=== PATIENT | female | born 1985 | race Two or more races ===

== ENCOUNTER 2021-01-04 10:37 | Outpatient (REF) | payer OTHER, SELFPAY ==
[2021-01-04 15:14] LABS: MANUAL DIFF FLAG NO
[2021-01-04 15:50] LABS: Basophils Percent Auto 0.4 % (0-2); Eosinophils Absolute Auto 0.4 X10*3/uL (0.0-0.4); Eosinophils Percent Auto 4.7 % (0-4); Hematocrit 43.4 % (37-47); Imm Gran Abs Auto 0.02 X10*3/uL (0.00-0.03); Imm Gran Pct Auto 0.3 % (0.0-0.4); Lymphocytes Percent Auto 26.1 % (20-40); Mean Corpuscular HGB Conc 34.6 g/dl (31.0-35.0); Mean Corpuscular Volume 95.6 fL (80-98); Mean Platelet Volume 10.4 fL (9.4-12.3); Monocytes Absolute Auto 0.6 X10*3/uL (0.1-1.2); Monocytes Percent Auto 8.3 % (2-11); Neutrophils Absolute Auto 4.5 X10*3/uL (2.0-8.3); Neutrophils Percent Auto 60.2 % (45-73); Platelet Count 265 X10*3/uL (160-400); Red Blood Count 4.54 X10*6/uL (4.20-5.50); Red Cell Distribution Width 11.5 % (11.0-16.0); White Blood Count 7.5 X10*3/uL (4.8-10.8)
[2021-01-04 16:00] LABS: Alanine Aminotransferase 36 U/L (0-31); Albumin Level 4.5 g/dL (3.5-5.0); Alkaline Phosphatase 58 U/L (39-117); Anion Gap 15 (12-20); Aspartate Amino Transferase 28 U/L (5-31); Bilirubin Total 0.6 mg/dL (0.0-1.0); Blood Urea Nitrogen 15 mg/dL (9-16); Calcium 9.2 mg/dL (8.4-10.2); Carbon Dioxide 23 mmol/L (22-29); Chloride 106 mmol/L (96-108); Cholesterol 179 mg/dL; Estimated Glomerular Filt Rate > 60; Glucose Fasting 71 mg/dL (60-99); HDL Cholesterol 72 mg/dL; Iron 175 mcg/dL (30-160); LDL Cholesterol Calculated 94 mg/dl; Percent Iron Saturation 48 % (15-50); Potassium 4.8 mmol/L (3.3-5.1); Sodium 139 mmol/L (135-145); Total Iron Binding Capacity 368 mcg/dL (228-428); Total Protein 7.1 g/dL (6.5-8.0); Triglycerides 67 mg/dL; Unsaturated Iron Binding 193 ug/dL
[2021-01-04 16:21] LABS: Ferritin 111 ng/mL (10-122); TSH reflex Free T4 0.86 uIU/mL (0.32-4.0)
[2021-01-06 09:16] LABS: Vitamin B12 320 pg/mL (200-900)
== END 2021-01-04 10:38 | disposition home or self-care (01) ==
LOC: HO.HMGCLDS 10:37
PROVIDERS: PCP Nurse Practitioner Family; Visit Provider Nurse Practitioner Family
DX: Z00.00 Encounter for general adult medical examination without abnormal findings (principal); R53.83 Other fatigue
CPT/HCPCS: 36415; 80053; 80061; 82607; 82728; 83540; 84443; 85025

== ENCOUNTER 2021-10-08 13:53 | Outpatient (REF) | payer OTHER, SELFPAY ==
--- NOTE | ~2021-10-08 | XR_ITS ---
EXAMINATION: XR SACRUM AND COCCYX CLINICAL INFORMATION: Sacrococcygeal disorders COMPARISON: None TECHNIQUE: 2 views of the sacrum/coccyx. FINDINGS: No fracture or subluxation. The sacroiliac joints are symmetric. The sacrum appears intact. The coccyx appears well aligned. The visualized lumbar spine appears appropriately aligned. The hips are well aligned. Normal bowel gas pattern. XR/XR sacrum coccyx min 2V IMPRESSION: No fracture or malalignment seen. Appropriate appearance of the sacroiliac joints.
== END 2021-10-08 13:54 | disposition home or self-care (01) ==
LOC: HO.HMGCX 13:53
PROVIDERS: PCP Nurse Practitioner Family; Visit Provider Nurse Practitioner Family
DX: M53.3 Sacrococcygeal disorders, not elsewhere classified (principal)
CPT/HCPCS: 72220

== ENCOUNTER 2021-12-03 13:00 | Outpatient (REF) | payer OTHER, SELFPAY ==
[2021-12-03 13:27] LABS: Binax Internal Control QC Valid; Binax Now Covid-19 Ag Negative (Negative)
== END 2021-12-03 13:01 | disposition home or self-care (01) ==
LOC: HO.HMGCLDS 13:00
PROVIDERS: PCP Nurse Practitioner Family; Visit Provider Internal Medicine
DX: J06.9 Acute upper respiratory infection, unspecified (principal); Z20.822 Contact with and (suspected) exposure to COVID-19
CPT/HCPCS: 87811; C9803

== ENCOUNTER 2023-07-15 11:55 | Outpatient (AMB) | payer OTHER, SELFPAY ==
[2023-07-15 12:26] VITALS: BP 130/78; PULSE 78; TEMP 36.7; O2SAT 98
--- NOTE | 2023-07-15 12:26 | AM.OFFWIN_ITS ---
Intake Vital Signs 07/15/23 12:26 Height 5 ft 5 in BP 130/78 Blood Pressure Location Rt brachial Position Sitting Pulse 78 Pulse Source Pulse Oximeter Temp 98.0 F Temp Source Temporal Artery Scan Pulse Oximetry (%) 98 Intake Visit Reasons: EP asthma cough body pain Intake Note: pt is here for c.o cough, body pain, asthma Patient Tobacco Use Status: Current everyday Tobacco user Allergies No Known Allergies Allergy (Verified 07/15/23 12:27) Do you need a note to return to daycare/school/sports/work: Yes HPI HPI Comments History of Present Illness Details 38 Y/O Female patient [facility] with c/o cough, SOB, wheezing and body aches. Reports that symptoms started Approx 4 days ago now. Reports that symptoms worse at night time. Unable to sleep due to coughing and SOB. Hx of Asthma, and has been using her rescue inhaler more frequently. COVID Negative at home. No recent sick contacts. Denies fevers or chills. Denies Nausea or vomiting. Reports some mild chest pains with coughing. Has not taken any OTC medications. PFSH Surgical History H/O knee surgery Family History Father Asthma Mother Hypertension Diabetes Maternal Grandmother Cancer Social History Alcohol intake: current Alcohol intake frequency: a few times a week Patient Tobacco Use Status: Current everyday Tobacco user Tobacco use type: Cigarette Cigarette Packs Per Day: 1 Cigarettes Per Day: 5 Years Smoked: 18 years old e-Cigarette/Vaping Use: Never Used service: No Cognitive needs: No Hearing needs: No Vision needs: No Review of Systems Const Reports body aches, Reports chills and Reports fatigue Card Reports chest pain (with coughing), Reports dyspnea and Reports dyspnea on exertion Resp Reports chest congestion, Reports cough, Reports pain with cough, Reports dyspnea, Reports dyspnea on exertion and Reports wheezing GI Denies abdominal pain, Denies nausea and Denies vomiting Endo Reports fatigue Aller/Immun Reports wheezing Physical Exam Vital Signs: Last Vital Signs Temp 98.0 F 07/15/23 12:26 Pulse 78 07/15/23 12:26 BP 130/78 07/15/23 12:26 Pulse Ox 98 07/15/23 12:26 Const General: comfortable and no acute distress HEENT Head: Yes normocephalic Ears: external ears normal and TM's normal bilaterally Face and sinus: Yes sinuses nontender Mouth: moist mucous membranes Throat: Yes posterior oropharynx normal Resp Effort & Inspection: normal respiratory effort and Actively coughing Auscultation: no crackles, no rales and wheezes right upper (chest) Cardio Rate: regular rate Rhythm: regular rhythm Assessment & Plan Assessment & Plan (1) Cough in adult: Code(s): R05.9 - Cough, unspecified Plan: Avoid triggers ?? These are things that make your symptoms worse. Common triggers include smoke, air pollution, dust, mold, pollen, strong chemicals or smells, and very cold or dry air. For some people, being around certain animals can trigger symptoms. Exercise and stress can also be triggers. Lower your risk of getting sick?? Some infections can make asthma symptoms worse. These include the common cold, the flu, and coronavirus disease 2019. It's important to get the COVID-19 vaccine. This will lower the risk of severe illness if you do get COVID-19. You should also get a flu shot every year. Plus, a vaccine to help prevent pneumonia. Take your medications as ordered. Rest, hydrate. Report any severe chest pains, SOB and Wheezing. (2) Asthma with acute exacerbation: Code(s): J45.901 - Unspecified asthma with (acute) exacerbation Qualifiers: Asthma severity: moderate Asthma persistence: persistent Qualified Code(s): J45.41 - Moderate persistent asthma with (acute) exacerbation Plan: Avoid triggers ?? These are things that make your symptoms worse. Common triggers include smoke, air pollution, dust, mold, pollen, strong chemicals or smells, and very cold or dry air. For some people, being around certain animals can trigger symptoms. Exercise and stress can also be triggers. Lower your risk of getting sick?? Some infections can make asthma symptoms worse. These include the common cold, the flu, and coronavirus disease 2019. It's important to get the COVID-19 vaccine. This will lower the risk of severe illness if you do get COVID-19. You should also get a flu shot every year. Plus, a vaccine to help prevent pneumonia. Take your medications as ordered. Rest, hydrate. Report any severe chest pains, SOB and Wheezing. Plan Avoid triggers ?? These are things that make your symptoms worse. Common triggers include smoke, air pollution, dust, mold, pollen, strong chemicals or smells, and very cold or dry air. For some people, being around certain animals can trigger symptoms. Exercise and stress can also be triggers. Lower your risk of getting sick?? Some infections can make asthma symptoms worse. These include the common cold, the flu, and coronavirus disease 2019. It's important to get the COVID-19 vaccine. This will lower the risk of severe illness if you do get COVID-19. You should also get a flu shot every year. Plus, a vaccine to help prevent pneumonia. Take your medications as ordered. Rest, hydrate. Report any severe chest pains, SOB and Wheezing. Orders: Orders XR chest 2V Today R05.9 - Cough, unspecified Medications: New 2 azithromycin 500 mg PO DAILY 5 days 5 tabs 0RF prednisone 50 mg PO DAILY 5 days 5 tabs 0RF J45.41 - Moderate persistent asthma with (acute) exacerbation montelukast (Singulair) 10 mg PO BEDTIME 30 tabs 0RF J45.41 - Moderate persistent asthma with (acute) exacerbation, R05.9 - Cough, unspecified Coding Level of Care Code Est Pt Level 3 (78582) Diagnoses Cough in adult R05.9 Moderate persistent asthma with acute exacerbation J45.41 Asthma severity: moderate Asthma persistence: persistent Time Spent (min) 15
== END 2023-07-15 13:33 | disposition home or self-care (01) ==
PROVIDERS: PCP Nurse Practitioner Family; Visit Provider Nurse Practitioner Family
DX: R05.9 Cough, unspecified (principal); J45.41 Moderate persistent asthma with (acute) exacerbation; F17.210 Nicotine dependence, cigarettes, uncomplicated
CPT/HCPCS: 99213

== ENCOUNTER 2023-07-15 12:44 | Outpatient (REF) | payer OTHER, SELFPAY ==
--- NOTE | ~2023-07-15 | XR_ITS ---
EXAMINATION: XR CHEST 2 VIEW CLINICAL INFORMATION: Body chills and fevers COMPARISON: None TECHNIQUE: PA and lateral views of the chest obtained. FINDINGS: The lungs are clear. There are no pleural effusions. The cardiomediastinal silhouette is normal. XR/XR chest 2V IMPRESSION: No acute cardiopulmonary disease.
== END 2023-07-15 12:45 | disposition home or self-care (01) ==
LOC: HO.HMGCX 12:44
PROVIDERS: PCP Nurse Practitioner Family; Visit Provider Nurse Practitioner Family
DX: R05.9 Cough, unspecified (principal)
CPT/HCPCS: 71046

== ENCOUNTER 2024-02-05 17:02 | Emergency (ER) | payer OTHER, SELFPAY ==
--- NOTE | ~2024-02-05 | CT_ITS ---
EXAMINATION: CT HEAD WITHOUT CONTRAST CT FACIAL BONES WITHOUT CONTRAST CT CERVICAL SPINE WITHOUT CONTRAST CLINICAL INFORMATION: Injury. Pain. COMPARISON: None. TECHNIQUE: Imaging was performed from the skull base to vertex without intravenous administration of contrast. In addition, helical noncontrast CT imaging was acquired through the cervical spine and facial bones and source images were reviewed along with axial reconstructions and sagittal and coronal MPRs. [This CT examination was performed using dose optimization techniques as appropriate, variously including the following: *Automated exposure control *Adjustment of mA and/or kV according to patient size (this includes techniques or standardized protocols for targeted exams where dose is matched to indication/reason for exam; i.e. extremities or head) *Use of iterative reconstruction technique] DLP: 1440 mGy-cm FINDINGS: HEAD: No intracranial mass, hemorrhage, or midline shift is visualized. The ventricles and sulci are normal. No extra-axial collections are identified. FACIAL BONES: Acute hematoma in the soft tissues over the left orbit and frontal bone. Orbital globes and retrobulbar structures are normal. No facial bone fracture. Paranasal sinuses are normally aerated. CERVICAL SPINE: There is no evidence of acute cervical spine fracture. Vertebral bodies remain normal in height. There is degenerative disc height narrowing and anterior vertebral endplate spurs at C3-C4. Facet joints are normal. . No pre- or paravertebral soft tissue abnormality is identified. Limited assessment of the lung apices is unremarkable. CT/CT facial bones wo IV con IMPRESSION: 1. No acute intracranial process or discrete facial bone fracture. 2. No acute cervical spine fracture or traumatic subluxation.
--- NOTE | ~2024-02-05 | CT_ITS ---
EXAMINATION: CT HEAD WITHOUT CONTRAST CT FACIAL BONES WITHOUT CONTRAST CT CERVICAL SPINE WITHOUT CONTRAST CLINICAL INFORMATION: Injury. Pain. COMPARISON: None. TECHNIQUE: Imaging was performed from the skull base to vertex without intravenous administration of contrast. In addition, helical noncontrast CT imaging was acquired through the cervical spine and facial bones and source images were reviewed along with axial reconstructions and sagittal and coronal MPRs. [This CT examination was performed using dose optimization techniques as appropriate, variously including the following: *Automated exposure control *Adjustment of mA and/or kV according to patient size (this includes techniques or standardized protocols for targeted exams where dose is matched to indication/reason for exam; i.e. extremities or head) *Use of iterative reconstruction technique] DLP: 1440 mGy-cm FINDINGS: HEAD: No intracranial mass, hemorrhage, or midline shift is visualized. The ventricles and sulci are normal. No extra-axial collections are identified. FACIAL BONES: Acute hematoma in the soft tissues over the left orbit and frontal bone. Orbital globes and retrobulbar structures are normal. No facial bone fracture. Paranasal sinuses are normally aerated. CERVICAL SPINE: There is no evidence of acute cervical spine fracture. Vertebral bodies remain normal in height. There is degenerative disc height narrowing and anterior vertebral endplate spurs at C3-C4. Facet joints are normal. . No pre- or paravertebral soft tissue abnormality is identified. Limited assessment of the lung apices is unremarkable. CT/CT cervical spine wo IV con IMPRESSION: 1. No acute intracranial process or discrete facial bone fracture. 2. No acute cervical spine fracture or traumatic subluxation.
--- NOTE | ~2024-02-05 | CT_ITS ---
EXAMINATION: CT HEAD WITHOUT CONTRAST CT FACIAL BONES WITHOUT CONTRAST CT CERVICAL SPINE WITHOUT CONTRAST CLINICAL INFORMATION: Injury. Pain. COMPARISON: None. TECHNIQUE: Imaging was performed from the skull base to vertex without intravenous administration of contrast. In addition, helical noncontrast CT imaging was acquired through the cervical spine and facial bones and source images were reviewed along with axial reconstructions and sagittal and coronal MPRs. [This CT examination was performed using dose optimization techniques as appropriate, variously including the following: *Automated exposure control *Adjustment of mA and/or kV according to patient size (this includes techniques or standardized protocols for targeted exams where dose is matched to indication/reason for exam; i.e. extremities or head) *Use of iterative reconstruction technique] DLP: 1440 mGy-cm FINDINGS: HEAD: No intracranial mass, hemorrhage, or midline shift is visualized. The ventricles and sulci are normal. No extra-axial collections are identified. FACIAL BONES: Acute hematoma in the soft tissues over the left orbit and frontal bone. Orbital globes and retrobulbar structures are normal. No facial bone fracture. Paranasal sinuses are normally aerated. CERVICAL SPINE: There is no evidence of acute cervical spine fracture. Vertebral bodies remain normal in height. There is degenerative disc height narrowing and anterior vertebral endplate spurs at C3-C4. Facet joints are normal. . No pre- or paravertebral soft tissue abnormality is identified. Limited assessment of the lung apices is unremarkable. CT/CT head/brain wo IV con IMPRESSION: 1. No acute intracranial process or discrete facial bone fracture. 2. No acute cervical spine fracture or traumatic subluxation.
[2024-02-05 17:00] VITALS: BP 126/91; BP 152/84; PULSE 110; PULSE 99; RESP 16; TEMP 36.2; O2SAT 96; O2SAT 99; BMI 23.7
--- NOTE | 2024-02-05 17:15 | PC.NURSE ---
this RN and Mikki RN changed patient over into hospital attire. patient severely intoxicated, states she was with her fiance and friends drinking today, endorses using cocaine. patient attempted to get out of bed, took a few steps into [address] when she fell in front of this RN and ED provider. patient did not lose consciousness, stood up with the help of staff, and walked back to her room and got into bed. patient evaluated immediately by ED provider, neuros intact IV placed by this RN, labs drawn and sent, patient awaiting CT scan.
--- NOTE | 2024-02-05 17:21 | ED.GENADULT ---
HPI - General Adult General Chief complaint: ETOH/Substance Use Stated complaint: etoh Time Seen by Provider: 02/05/24 17:20 Source: patient, family (patient's partner) and EMS Mode of arrival: EMS Limitations: no limitations History of Present Illness ED Provider: Yessy Car PA-C HPI narrative: Patient is a 38 year old assigned female at with a history of HTN and asthma presenting to the emergency department today with alcohol intoxication and facial injuries. EMS states that the patient as found in her vehicle, intoxicated, and when getting out of her vehicle, she fell forward and hit her face. Patient's partner states that the patient's father recently committed suicide and because of this, the patient has been stressed, depressed, and not eating well. Patient's partner states she does not believe the patient's drinking today was an attempt to harm herself or others. Patient denies any dizziness, lightheadedness, abdominal pain, nausea, vomiting, fever, chills, blurry vision, double vision, loss of vision, chest pain, difficulty breathing, shortness of breath, back pain, night sweats, pain with urination, increased urinary frequency, increased urinary urgency, blood in her urine or stool, syncope or a near syncopal episode, bowel incontinence, bladder incontinence, or any other complaints at this time. Location: face Severity: mild Severity scale (1-10): 4 Relieving factors: none Exacerbating factors: none Associated symptoms: denies other symptoms Treatments prior to arrival: none Related Data Previous Rx's ?Medication ?Instructions ?Recorded Ventolin HFA 90 mcg/actuation 2 puff inhalation Q6H PRN 06/04/23 aerosol inhaler (albuterol sulfate) shortness of breath or wheezing 30 days #8 grams budesonide-formoterol HFA 80 1 inh inhalation BID 30 days #10.2 06/04/23 mcg-4.5 mcg/actuation aerosol grams inhaler (Symbicort) azithromycin 500 mg tablet 500 mg PO DAILY 5 days #5 tabs 07/15/23 montelukast 10 mg tablet 10 mg PO BEDTIME #30 tabs 07/15/23 (Singulair) prednisone 50 mg tablet 50 mg PO DAILY 5 days #5 tabs 07/15/23 lisinopril 10 mg tablet 10 mg PO DAILY #90 tabs 12/28/23 hydrochlorothiazide 12.5 mg tablet 12.5 mg PO DAILY #90 tabs 01/07/24 Allergies Allergy/AdvReac Type Severity Reaction Status Date / Time No Known Allergies Allergy Verified 02/05/24 17:47 Review of Systems Constitutional: Constitutional: Reports no additional constitutional complaints, Denies chills, Denies fever(s), Reports headache(s) and Denies night sweats Eyes: Eyes: Reports no additional eye complaints, Denies blurry vision, Denies change in vision, Denies diplopia, Denies eye discharge, Denies loss of vision and Denies eye pain ENT: Denies dizziness and Reports headache(s) Cardiovascular: Cardiovascular: Reports no additional cardiovascular complaints, Denies chest pain, Denies lightheadedness, Denies Loss of Consciousness and Denies dyspnea Respiratory: Respiratory: Reports no additional respiratory complaints and Denies dyspnea Gastrointestinal: Gastrointestinal: Reports no additional gastrointestinal complaints, Denies abdominal pain, Denies melena, Denies hematochezia, Denies change in bowel habits and Denies change in stool character Genitourinary: Genitourinary: Denies hematuria, Denies urinary frequency, Denies dysuria, Denies urinary incontinence, Denies urinary hesitancy and Denies urinary urgency Musculoskeletal: Musculoskeletal: Reports no additional musculoskeletal complaints, Denies numbness and Denies tingling Neurologic: Denies dizziness, Reports headache(s), Denies loss of vision, Denies numbness and Denies tingling Psychiatric: Psychiatric: Reports no additional psychiatric complaints Endocrine: Endocrine: Reports no additional endocrine complaints Hematologic/Lymphatic: Hematologic/Lymphatic: Reports no additional hematologic/lymphatic complaints Allergic/Immunologic: Allergic/Immunologic: Reports no additional allergic/immunologic complaints [facility] Past Medical History Attestation statement: The following information was validated with the patient. (all information validated with the patient's partner) Source: old records reviewed, obtained from family (patient's partner provided additional history and confirmed the history provided by the patient.) and nursing notes reviewed Surgical History H/O knee surgery Family History Family History Father Asthma Mother Hypertension Diabetes Maternal Grandmother Cancer Social History Social History Alcohol intake: current Alcohol intake frequency: a few times a week Patient Tobacco Use Status: Current everyday Tobacco user Tobacco use type: Cigarette Cigarette Packs Per Day: 1 Cigarettes Per Day: 5 Years Smoked: 18 years old e-Cigarette/Vaping Use: Never Used Use of substances other than those prescribed or required for medical reasons: No Advance Directives: No Advance Directives Information Provided: No Do you have a plan to hurt others: No Plan service: No Cognitive needs: No Hearing needs: No Vision needs: No Physical Exam ED Vital Signs: Vital Signs - 24 hr 02/05/24 17:00 02/05/24 23:13 Temperature 97.2 F 97.2 F Pulse Rate 99 99 Respiratory Rate 16 16 Blood Pressure 126/91 H 126/91 H Pulse Oximetry 96 96 Oxygen Delivery Method Room Air Room Air BMI result Body Mass Index 23.7 Const General: cooperative, no acute distress, alert and awake Nutritional Appearance: well nourished Orientation/consciousness: patient oriented x3 Limitations: no limitations HENMT Other: Ears: hearing grossly normal bilaterally and external ears normal General nose exam: Normal external nose present, no nasal discharge noted and no epistaxis Mouth: Normal oral and palatal mucosa present, no drooling and no muffled voice Eyes Conjunctivae: conjunctivae normal Pupils: Equal, round and reactive pupils present EOM: EOMs intact bilaterally Neck Neck: Yes normal visual inspection, Yes full ROM and Yes no lymphadenopathy Chest Chest palpation & inspection: normal inspection of the chest Resp Effort & Inspection: normal respiratory effort and able to speak in complete sentences GI Inspection: Yes normal to inspection Neuro General: patient oriented x3 and moves all extremities Cranial nerves: Yes Equal, round and reactive pupils present Cognition (Neuro): normal cognition Extrem General: Yes normal to inspection, Yes full ROM and Yes capillary refill normal Psych Appearance: grossly normal Mental Status: mental status grossly normal Affect: normal affect Attitude: cooperative Thought process: Normal thought process present Thought content: Normal thought content present Insight: Good insight present (Psych) Course Reevaluation(s) Reevaluation #1: While in the department, patient got out of bed unsteady on her feet and tripped, falling forward. Patient's facial injuries as pictured in the physical exam portion of this note were already present. Patient declined any additional complaints after the fall. Patient had not gone to imaging yet. Reevaluation #2: Head, neck, and facial bone CT scans unremarkable for any acute injury. Patient is eating and drinking and would like to be discharged home. Girlfriend at bedside. Patient eating and drinking without difficulty, ambulatory in the emergency room. Patient reports that she is feeling well, would like to be discharged home. Advised to get a tetanus shot as she is unsure when her last 1 was however patient adamantly refuses. Pamphlet of external resources given to patient for therapy etc. as she has been going through a difficult time with recent in her family. She is going home with girlfriend. Patient stable for discharge. Time: 22:50 Medications Administered Discontinued Medications Generic Name Dose Route Start Last Admin Trade Name Freq PRN Reason Stop Dose Admin Sodium Chloride 1,000 mls @ 999 mls/hr 02/05/24 17:30 02/05/24 20:00 Ns IV 02/05/24 18:30 Infused .Q1H1M BALAJI Infusion Lorazepam 2 mg 02/05/24 17:21 02/05/24 17:34 Lorazepam 2 Mg/Ml Vial IVPUSH 02/05/24 17:22 2 mg ONCE ONE Administration Olanzapine 5 mg 02/05/24 18:15 02/05/24 18:21 Olanzapine 5 Mg Tablet PO 02/05/24 18:16 5 mg ONCE ONE Administration Medical Decision Making Medical Decision Making [facility] Narrative: Patient is a 38 year old assigned female at with a history of HTN and asthma presenting to the emergency department today after a fall. Patient's physical exam was as noted in the physical exam portion of this note. Patient's blood work showed an alcohol of 404 but were otherwise unremarkable. Patient's had, C-spine, and facial bones CTs are pending at this time. I explained my physical exam findings as well as all test results to the patient and the patient's partner. I answered all questions asked by the patient and the patient's partner. Patient signed out to evening GIDEON with disposition pending CT reads. Differential Diagnosis Differential Diagnoses: The differential diagnosis associated with the presentation includes Facial fracture Intracranial hemorrhage Head injury Concussion Black eye Contusion Admission/Observation Consideration of admission/observation: Escalation of care including admission/observation considered Patient's disposition will be determined after CT results are in. Lab Data [facility] Lab Attestation statement: I reviewed the patient's lab results. My interpretation of these results are in the MDM Rationale portion of this note. 02/05/24 17:29 02/05/24 20:11 Labs: Lab Results 02/05/24 02/05/24 02/05/24 Range/Units 17:29 20:11 Unknown WBC 10.4 (4.8-10.8) X10*3/uL RBC 4.53 (4.20-5.50) X10*6/uL Hgb 15.9 (12.0-16.0) g/dl Hct 43.7 (37.0-47.0) % MCV 96.5 (80.0-98.0) fL MCH 35.1 H (27.0-33.0) pg MCHC 36.4 H (31.0-35.0) g/dl RDW 13.0 (11.0-16.0) % Plt Count 318 (160-400) X10*3/uL MPV 9.7 (9.4-12.3) fL Immature Gran % (Auto) 0.2 (0.0-0.4) % Neut % (Auto) 57.0 (45-73) % Lymph % (Auto) 33.9 (20-40) % Johnson % (Auto) 6.8 (2-11) % Eos % (Auto) 1.6 (0-4) % Baso % (Auto) 0.5 (0-2) % Lymph # (Auto) 3.5 (1.2-4.9) X10*3/uL Johnson # (Auto) 0.7 (0.1-1.2) X10*3/uL Eos # (Auto) 0.2 (0.0-0.4) X10*3/uL Baso # (Auto) 0.1 (0.0-0.2) X10*3/uL Abs Immat Gran (auto) 0.02 (0.00-0.03) X10*3/uL Absolute Neuts (auto) 5.9 (2.0-8.3) x10*3/uL Absolute Nucleated RBC 0.000 (0.0-0.012) X10*3/uL Nucleated RBC % (auto) 0.0 (0.0-0.2) /100WBC Smear Tech's Comments VERIFIED PT 10.4 L (11.1-13.3) SEC INR 0.9 (0.9-1.1) Sodium 147 H (135-145) mmol/L Potassium 4.0 (3.3-5.1) mmol/L Chloride 114 H (96-108) mmol/L Carbon Dioxide 21 L (22-29) mmol/L Anion Gap 16 (12-20) BUN 7 L (9-16) mg/dL Creatinine 0.70 (0.5-1.4) mg/dL Estim Creat Clear Calc 98.9 Estimated GFR > 60 Random Glucose 94 (60-115) mg/dL Calcium 8.0 L D (8.4-10.2) mg/dL Magnesium 1.9 (1.6-2.6) mg/dL Total Bilirubin 0.2 (0.0-1.0) mg/dL AST 122 H (5-31) U/L ALT 80 H (0-31) U/L Alkaline Phosphatase 59 (39-117) U/L Total Protein 6.6 (6.5-8.0) g/dL Albumin 4.1 (3.5-5.0) g/dL Beta HCG, Quant < 2 mIU/mL Ethyl Alcohol 404 H* mg/dL Independent Historian Clinical information obtained from an independent historian. History obtained from or confirmed by: EMS (EMS provided additional history and confirmed the history provided by the patient.) and Other (patient's partner provided additional history and confirmed the history provided by the patient.) Critical Care Time Critical Care Time Critical Care Time: Yes Total Critical Care Time: 42 Attestation: I spent 42 minutes of Critical Care Time with this patient. This does not include time spent on separately reported billable procedures. Discharge Plan Discharge Clinical Impression: Fall, Black eye Patient Disposition: Home, Self-Care Instructions: Black Eye (ED), Fall Prevention (ED) Additional Instructions: You were seen in the emergency department after a fall. Your CT of your head, facial bones, and neck were normal. Physical and mental rest can help you get better faster. Drink plenty of fluids get plenty of rest. Applying ice to the area can help reduce swelling. You may take Tylenol and/or ibuprofen as needed for pain and symptoms. Follow-up with your primary care physician. You were for used your tetanus shot. If any new or worsening symptoms occur including but not limited to severe headache, chest pain, shortness breast, please return for re-evaluation. Prescriptions: No Action budesonide-formoterol [Symbicort] 80-4.5 mcg/actuation HFA aerosol inhaler 1 inh inhalation BID 30 Days Qty: 10.2 2RF albuterol sulfate [Ventolin HFA] 90 mcg/actuation HFA aerosol inhaler 2 puff inhalation Q6H PRN (Reason: shortness of breath or wheezing) 30 Days Qty: 8 2RF lisinopril 10 mg tablet 10 mg PO DAILY Qty: 90 0RF hydrochlorothiazide 12.5 mg tablet 12.5 mg PO DAILY Qty: 90 0RF azithromycin 500 mg tablet 500 mg PO DAILY 5 Days Qty: 5 0RF montelukast [Singulair] 10 mg tablet 10 mg PO BEDTIME Qty: 30 0RF prednisone 50 mg tablet 50 mg PO DAILY 5 Days Qty: 5 0RF Interventions: ED Discharge Assessment Last Done: 02/05/24 23:13 Discharge Date/Time: 02/05/24 23:16 Print Language: Persian
[2024-02-05 17:33] LABS: Hematocrit 43.7 % (37.0-47.0); Monocytes Absolute Auto 0.7 X10*3/uL (0.1-1.2); Monocytes Percent Auto 6.8 % (2-11); PLT CLUMP 1; SCAN SMEAR FLAG 1
[2024-02-05] MEDS: LORazepam 2 MG/ML VIAL IVPUSH (17:34)
[2024-02-05 17:35] LABS: Basophils Absolute Auto 0.1 X10*3/uL (0.0-0.2); Basophils Percent Auto 0.5 % (0-2); Eosinophils Absolute Auto 0.2 X10*3/uL (0.0-0.4); Eosinophils Percent Auto 1.6 % (0-4); Hemoglobin 15.9 g/dl (12.0-16.0); Imm Gran Abs Auto 0.02 X10*3/uL (0.00-0.03); Imm Gran Pct Auto 0.2 % (0.0-0.4); Lymphocytes Absolute Auto 3.5 X10*3/uL (1.2-4.9); Lymphocytes Percent Auto 33.9 % (20-40); MANUAL DIFF FLAG SCAN; Mean Corpuscular HGB Conc 36.4 g/dl (31.0-35.0); Mean Corpuscular Hemoglobin 35.1 pg (27.0-33.0); Mean Corpuscular Volume 96.5 fL (80.0-98.0); Mean Platelet Volume 9.7 fL (9.4-12.3); Neutrophils Absolute Auto 5.9 x10*3/uL (2.0-8.3); Red Blood Count 4.53 X10*6/uL (4.20-5.50)
[2024-02-05] MEDS: 0.9 % Sodium Chloride 1,000 ML 999 ML IV (17:35)
[2024-02-05 17:37] LABS: White Blood Count 10.4 X10*3/uL (4.8-10.8)
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
[2024-02-05 18:12] LABS: INTERNATIONAL NORM RATIO 0.9 (0.9-1.1); Prothrombin Time 10.4 SEC (11.1-13.3)
[2024-02-05 18:16] LABS: Platelet Count 318 X10*3/uL (160-400); SLIDE REVIEW VERIFIED
[2024-02-05] MEDS: OLANZapine 5 MG TABLET PO (18:21)
--- NOTE | 2024-02-05 18:24 | PC.NURSE ---
patient family presented, patient angie at bedside. patient fiance shared that patients father committed suicide a week january 25.
--- NOTE | 2024-02-05 19:22 | PC.NURSE ---
This RN assumed pt care @ 1900. Pt alert to person, no signs of distress. Pt has sitter at bedside. Pts is at bedside. Plan of care ongoing.
[2024-02-05 20:42] LABS: Alanine Aminotransferase 80 U/L (0-31); Albumin Level 4.1 g/dL (3.5-5.0); Alkaline Phosphatase 59 U/L (39-117); Anion Gap 16 (12-20); Aspartate Amino Transferase 122 U/L (5-31); Bilirubin Total 0.2 mg/dL (0.0-1.0); Blood Urea Nitrogen 7 mg/dL (9-16); Carbon Dioxide 21 mmol/L (22-29); Chloride 114 mmol/L (96-108); Creatinine Clr Calc Pharmacy 98.9; Estimated Glomerular Filt Rate > 60; Ethanol 404 mg/dL; Glucose Random 94 mg/dL (60-115); Magnesium 1.9 mg/dL (1.6-2.6); Sodium 147 mmol/L (135-145); Total Protein 6.6 g/dL (6.5-8.0)
[2024-02-05 20:44] LABS: HCG Quantitative < 2 mIU/mL
--- NOTE | 2024-02-05 20:51 | PC.NURSE ---
Pt requested something to drink. Provider would like to wait until after scans come back. Pt advised. Plan of care ongoing.
--- NOTE | 2024-02-05 21:22 | PC.NURSE ---
Pt attempting to leave to go outside. Pt redirected back into bed. Pt being aggressive with , telling her to leave and posturing towards , pt telling to leave. atul [phone]. Plan of care ongoing.
--- NOTE | 2024-02-05 23:12 | PC.NURSE ---
Pt refusing all medical attention. Pt refused vitals. Pt refused meds Provider notified and aware. Pts here to pick her up. Plan of care ongoing
[2024-02-05 23:13] VITALS: BP 126/91; PULSE 99; RESP 16; TEMP 36.2; O2SAT 96
== END 2024-02-05 23:16 | disposition home or self-care (01) ==
PROVIDERS: Physician Assistant Medical; Emergency Provider Emergency Medicine
DX: S00.12XA Contusion of left eyelid and periocular area, initial encounter (principal); V48.4XXA Person boarding or alighting a car injured in noncollision transport accident, initial encounter; F10.920 Alcohol use, unspecified with intoxication, uncomplicated; Y90.8 Blood alcohol level of 240 mg/100 ml or more; R51.9 Headache, unspecified; Z72.89 Other problems related to lifestyle; Z63.4 Disappearance and death of family member; I10 Essential (primary) hypertension; J45.909 Unspecified asthma, uncomplicated; F17.210 Nicotine dependence, cigarettes, uncomplicated; Z79.899 Other long term (current) drug therapy; Y93.89 Activity, other specified; Y92.410 Unspecified street and highway as the place of occurrence of the external cause; Y99.9 Unspecified external cause status
CPT/HCPCS: 36415; 70450; 70486; 72125; 80053; 80307; 83735; 84702; 85025; 85610; 96361; 96374; 99284; J2060

== ENCOUNTER 2024-02-08 09:22 | Outpatient (AMB) | payer OTHER, SELFPAY ==
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
[2024-02-08 09:42] VITALS: BP 136/90; PULSE 86; TEMP 36.8; O2SAT 98; BMI 25.0
== END 2024-02-08 11:06 | disposition home or self-care (01) ==
PROVIDERS: PCP Nurse Practitioner Family; Visit Provider Nurse Practitioner Family
DX: S05.92XA Unspecified injury of left eye and orbit, initial encounter (principal)
CPT/HCPCS: 99213

== ENCOUNTER 2024-03-07 14:06 | Outpatient (AMB) | payer OTHER, SELFPAY ==
--- NOTE | 2024-03-07 14:09 | MHC.PC.OV ---
Vital Signs 03/07/24 14:10 Height 5 ft 5 in Weight 149 lb BMI 24.8 BP 138/84 Blood Pressure Location Rt brachial Position Sitting Pulse 87 Pulse Source Pulse Oximeter Pulse Oximetry (%) 98 Intake Visit Reasons: Follow up r/s from 02/14- NEEDS PHQ-9 Intake Note: pt is here for follow up HTN Allergies No Known Allergies Allergy (Verified 03/07/24 14:36) Medication List - Last Reconciled 03/07/24 by LISA Lake budesonide-formoterol 80-4.5 mcg/actuation (Symbicort) 1 inh inhalation BID 30 days hydrochlorothiazide 12.5 mg PO DAILY lisinopril 10 mg PO DAILY montelukast (Singulair) 10 mg PO BEDTIME Ventolin HFA 90 mcg/actuation (albuterol sulfate) 2 puffs inhalation Q6H PRN 30 days NS Tobacco use date assessed: 03/07/24 Dental Screening Dental Screen Date: 03/07/24 Did you have a dental visit in the last 12 months?: Yes Did you have a dental problem in the last 6 months where you did not have access to dental care?: No Was dental information given to patient?: Patient has dentist HPI Follow up r/s from 02/14- NEEDS PHQ-9 HPI Details Pt is here for a PE. Labs were already ordered, encouraged pt to have these drawn. #2 pt reported fracturing her right hand several years ago, now reports having pain and a tendon that is easily manipulative and tender (apparently fractured right MCP joint region). Will order XR and refer to ortho (hand specialist). Asthma: doing well PFSH Surgical History H/O knee surgery Family History Father Asthma Mother Hypertension Diabetes Maternal Grandmother Cancer Social History Alcohol intake: current Alcohol intake frequency: a few times a week Patient Tobacco Use Status: Current everyday Tobacco user Tobacco use type: Cigarette Cigarette Packs Per Day: 1 Cigarettes Per Day: 5 Years Smoked: 18 years old e-Cigarette/Vaping Use: Never Used service: No Cognitive needs: No Hearing needs: No Vision needs: No Questionnaire PHQ-9 Over the last 2 weeks, how often have you been bothered by any of the following problems? 1. Little interest or pleasure in doing things: not at all 2. Feeling down, depressed, or hopeless: not at all 3. Trouble falling or staying asleep, or sleeping too much: not at all 4. Feeling tired or having little energy: not at all 5. Poor appetite or overeating: not at all 6. Feeling bad about yourself - or that you are a failure or have let yourself or your family down: not at all 7. Trouble concentrating on things, such as reading the newspaper or watching television: not at all 8. Moving or speaking so slowly that other people could have noticed. Or the opposite - being so fidgety or restless that you have been moving around a lot more than usual: not at all 9. Thoughts that you would be better off or of hurting yourself in some way: not at all Total score: 0 Depression Screening Interpretation: Negative Depression Screening Done: Yes 47691 - PHQ-9 Billing: Yes Source: Developed by Drs. Sina Melgoza, Samia Valle, Thai Lee and colleagues, with an educational bartolo from [employer]. Thrive Questionnaire Date Thrive assessed: 02/29/24 I am a: Patient What is your living situation today?: I have a steady place to live Within the past 12 months, did the food you bought not last and you didn't have the money to get more?: Never true Within the past 12 months, did you worry whether your food would run out before you got money to buy more?: Never true Do you have trouble paying for medicines?: No Do you have trouble getting transportation to medical appointments?: No Do you have trouble paying your heating and electricity bill?: No Do you have trouble taking care of your child, family member or friend?: No Do you have trouble with day-to-day activities such as bathing, preparing meals, shopping, managing finances, etc.?: No Are you currently unemployed and looking for a job?: No Are you interested in more education?: No Please select the resources that you would like help with: None Currently or been in a relationship where the following occur: No concerns reported THRIVE Score: 0 AUDIT C Alcohol Use Questionnaire (AUDIT-C) 1. How often do you have a drink containing alcohol?: 2-3 times a week 2. How many drinks containing alcohol do you have on a typical day when you are drinking?: 1 or 2 3. How often do you have six or more drinks on one occasion?: Less than monthly Total Score: 4 Score Reviewed/Action Taken: Yes TOMY-7 AMB Questionnaire TOMY-7 Date TOMY - 7 assessed: 03/07/24 Feeling nervous, anxious, or on edge: 1 = Several days Not being able to stop or control worryin = Not at all Worrying too much about different things: 0 = Not at all Trouble relaxin = Not at all Being so restless that it is hard to sit still: 0 = Not at all Becoming easily annoyed or irritable: 0 = Not at all Feeling afraid as if something awful might happen: 0 = Not at all Total TOMY-7 score (0-4 normal; 5-9 mild; 10-14 moderate; 15-21 severe): 1 Source: Developed by Drs. Sina Melgoza, Samia Valle, Thai Lee and colleagues, with an educational bartolo from [employer]. TOMY-7 Assessment Billing TOMY-7 Assessment Tool: TOMY-7 Assessment 29829 Review of Systems Const Denies chills and Denies fever(s) Eyes Denies blurry vision ENT Denies vertigo, Denies dizziness and Denies sore throat Card Denies chest pain at rest, Denies chest pain with activity, Denies diaphoresis, Denies dyspnea and Denies dyspnea on exertion Resp Denies cough, Denies dyspnea, Denies dyspnea on exertion and Denies wheezing GI Denies abdominal pain, Denies melena, Denies hematochezia, Denies constipation, Denies diarrhea and Denies loose stools Denies hematuria Musc Denies numbness and Denies tingling Skin/Breast Denies lesions Neuro Denies vertigo, Denies dizziness, Denies numbness and Denies tingling Psych Denies anxiety, Denies depression, Denies homicidal ideation, Denies suicidal ideation and Denies other (substance abuse) Aller/Immun Denies wheezing Physical exam (Primary Care) Vital Signs: Last Vital Signs Pulse 87 03/07/24 14:10 BP 138/84 03/07/24 14:10 Pulse Ox 98 03/07/24 14:10 BMI result Body Mass Index 24.8 Tobacco/Smoking Status: Tobacco use Status Tobacco use date assessed 03/07/24 03/07/24 14:14 Patient Tobacco Use Status Current everyday Tobacco 03/07/24 14:14 Tobacco use type Cigarette 03/07/24 14:14 e-Cigarette/Vaping Use Never Used 03/07/24 14:14 PHQ-9: PHQ-9 Score PHQ-9: Total score 0 03/07/24 14:14 Depression Screening Interpretation: Negative Thrive Assessment: Date of Thrive Assessment Date Thrive assessed 02/29/24 03/07/24 14:14 Currently or been in a relationship where the following occur: No concerns reported Const General: cooperative Nutritional Appearance: well nourished Orientation/consciousness: patient oriented x3 HENMT Head: Yes normal to inspection, Yes normocephalic and Yes atraumatic Ears: TM's normal bilaterally Eyes General: appearance normal, both eyes and all related structures Alignment and Position: alignment normal and position normal Neck Neck: Yes normal visual inspection, Yes no lymphadenopathy and Yes supple Resp Effort & Inspection: normal respiratory effort Auscultation: clear to auscultation bilaterally Cardio Rate: regular rate Rhythm: regular rhythm Heart sounds: S1 normal heart sound present, S2 normal heart sound present and no murmurs GI Palpation (GI): Soft to palpation and nontender Auscultation: normal bowel sounds Skin Rashes: no rashes Neuro General: patient oriented x3 Romberg Test: Negative Extrem Other: right hand, 4th finger, proximal/lateral aspect with linear tissue that is tender with touch. Psych Appearance: grossly normal Mental Status: mental status grossly normal Speech and movement: Normal speech and movement present Affect: normal affect Attitude: cooperative Thought process: Normal thought process present Thought content: Normal thought content present Insight: Good insight present (Psych) Judgement: Good judgement present (Psych) Assessment and Plan Assessment & Plan (1) Physical exam: Code(s): Z00.00 - Encounter for general adult medical examination without abnormal findings Plan: Labs already ordered (2) Hand pain: Code(s): M79.643 - Pain in unspecified hand Plan: XR ordered, referred to hand specialist Plan The patient agreed to the use of a medical director/head team physician for this encounter. Scribed for SHIRLEY Perez- by Dana Cornelius medical director/head team physician, on 03/07/2024 at 14:15 EST. Orders: Orders XR hand RT 2V Today M79.643 - Pain in unspecified hand Referrals Orthopedics Referral M79.643 - Pain in unspecified hand Coding Level of Care Code Est Pt Prev Care 18-39y(79387) Diagnoses Physical exam Z00.00 Hand pain M79.643 Additional Codes TOMY-7 Assessment Billing - TOMY-7 Assessment Tool: TOMY-7 Assessment 73340 ([id number])
[2024-03-07 14:10] VITALS: BP 138/84; PULSE 87; O2SAT 98; BMI 24.8
== END 2024-03-07 16:03 | disposition home or self-care (01) ==
PROVIDERS: PCP Nurse Practitioner Family; Visit Provider Nurse Practitioner Family
DX: Z00.00 Encounter for general adult medical examination without abnormal findings (principal); M79.643 Pain in unspecified hand
CPT/HCPCS: 99395

== ENCOUNTER 2024-03-27 14:21 | Outpatient (REF) | payer OTHER, SELFPAY ==
--- NOTE | ~2024-03-27 | XR_ITS ---
EXAMINATION: XR SHOULDER, LEFT XR HAND, RIGHT CLINICAL INFORMATION: Pain right hand, left shoulder. COMPARISON: None available. TECHNIQUE: 3 views left shoulder, 3 views right hand. FINDINGS: Left Shoulder: Mild degenerative changes in the acromioclavicular joint. Glenohumeral alignment is preserved. No abnormal soft tissue calcifications appreciated adjacent to the humeral head. Right Hand: Bone mineralization is normal. Ulnar-minus variance. Focal cortical bulge at the distal radius with subtle transverse lucency suspicious for an impacted, nondisplaced distal radial fracture. Mild degenerative changes in the first carpometacarpal joint. Mild degenerative changes at the first metacarpophalangeal joint. XR/XR hand RT min 3V IMPRESSION: 1. Focal cortical bulge at the distal radius with subtle transverse lucency suspicious for an impacted, nondisplaced distal radial fracture. Correlation with clinical exam recommended. 2. Mild degenerative changes in the left acromioclavicular joint. This study was presented today April 26, 2024 for interpretation. Stat results provided at this time as requested by referring provider. Electronically signed by: Marjorie Cohen MD 04/26/2024 09:03 AM EDT
== END 2024-03-27 14:22 | disposition home or self-care (01) ==
LOC: HO.HOSX 14:21
PROVIDERS: PCP Nurse Practitioner Family
DX: M79.641 Pain in right hand (principal)
CPT/HCPCS: 73130

== ENCOUNTER 2024-04-25 10:41 | Outpatient (AMB) | payer OTHER, SELFPAY ==
--- NOTE | 2024-04-25 10:44 | MHC.OFFWIV ---
Intake Vital Signs 04/25/24 10:47 Height 5 ft 5 in Weight 152 lb BMI 25.3 BP 130/90 H Blood Pressure Location Rt brachial Position Sitting Pulse 74 Pulse Source Pulse Oximeter Pulse Oximetry (%) 98 Oxygen Delivery Method Room Air Intake Visit Reasons: EP fell LT side bruise & LT shoulder pain Intake Note: Patient here because she fell on Wednesday night and has lacerations on the left side of her face and shoulder. Patient Tobacco Use Status: Current everyday Tobacco user Allergies No Known Allergies Allergy (Verified 04/25/24 10:50) Do you need a note to return to daycare/school/sports/work: No HPI HPI Comments History of Present Illness Details Patient is a 38-year-old female who is coming in for an evaluation of left-sided facial pain and left shoulder pain. She states that on Wednesday, she ?drank too much and passed out ?, she does not remember this happening but her friend told her she did not even brace herself she just fell to the ground from standing on the left side of her face and shoulder. She tells me today she has been unable to lift her left arm since then. She tells me has she has an abrasion on the top of her shoulder which she wash with warm soap and water and has applied Neosporin. She did the same thing for the abrasion on the side of her face. She is concerned because it is the 3rd time this has happened since February. She denies any changes in her vision or blurry vision. [facility] Surgical History H/O knee surgery Family History Father Asthma Mother Hypertension Diabetes Maternal Grandmother Cancer Social History Alcohol intake: current Alcohol intake frequency: a few times a week Patient Tobacco Use Status: Current everyday Tobacco user Tobacco use type: Cigarette Cigarette Packs Per Day: 1 Cigarettes Per Day: 5 Years Smoked: 18 years old e-Cigarette/Vaping Use: Never Used service: No Cognitive needs: No Hearing needs: No Vision needs: No Review of Systems Const All systems reviewed & are unremarkable except as noted in HPI and below Physical Exam Vital Signs: Last Vital Signs Pulse 74 04/25/24 10:47 BP 130/90 H 04/25/24 10:47 Pulse Ox 98 04/25/24 10:47 Oxygen Delivery Method Room Air 04/25/24 10:47 BMI result Body Mass Index 25.3 Const General: cooperative, healthy appearing, comfortable, well developed, anxious and tired appearing Nutritional Appearance: average body habitus Orientation/consciousness: patient oriented x3 Limitations: no limitations HEENT Head: Yes normal to inspection Ears: hearing grossly normal bilaterally General nose exam: Normal external nose present Face and sinus: Yes normal facial exam Eyes Alignment and Position: alignment normal and position normal Periorbital: periorbital findings abnormal left (2cmx 3cm abrasion lateral to the eye, no warmth or signs of infection noted) periorbital swelling, periorbital tenderness and periorbital ecchymosis Eyelids: Yes eyelid abnormality (swelling and ecchymosis left upper eyelid) Conjunctivae: conjunctival abnormal left conjunctival injection (mild); without discharge and without subconjunctival hemmorhages Pupils: Equal, round and reactive pupils present EOM: EOMs intact bilaterally Neck Neck: Yes normal visual inspection and Yes full ROM Resp Effort & Inspection: normal respiratory effort and able to speak in complete sentences Skin General skin exam: no rashes or lesions noted Neuro General: patient oriented x3 Cranial nerves: Yes Equal, round and reactive pupils present Extrem General: Yes normal to inspection Left upper extremity: shoulder/upper arm Details: tenderness Location: of the A-C joint, abnormal ROM Details: pain with active ROM Details: in ABduction, in extension and in flexion; but not in ADduction, but not in internal rotation and external rotation- and pain with passive ROM Details: in ABduction, in extension and in flexion; but not in ADduction, but not in internal rotation and external rotation- and abrasion (3cm round abrasion, no warmth or signs of infection noted) shoulder mid medial ; no lacerations and no deformity Left lower extremity: knee Details: ecchymosis Assessment & Plan Assessment & Plan (1) Left shoulder pain: Code(s): M25.512 - Pain in left shoulder Qualifiers: Chronicity: acute Qualified Code(s): M25.512 - Pain in left shoulder Plan: We will get shoulder x-ray and send a referral to Orthopedics for further evaluation. Gave patient sling and recommended using Aleve with ice (2) Traumatic periorbital ecchymosis of left eye: Code(s): S05.12XA - Contusion of eyeball and orbital tissues, left eye, initial encounter Qualifiers: Encounter type: initial encounter Qualified Code(s): S05.12XA - Contusion of eyeball and orbital tissues, left eye, initial encounter Plan: Recommended keeping the abrasion clean with warm soapy water and applying Aquaphor ointment twice daily. If she experiences any visual changes or pain in her eye, she should go to the emergency department or talk to her public employment mediator (3) Fall: Code(s): W19.XXXA - Unspecified fall, initial encounter Qualifiers: Encounter type: initial encounter Qualified Code(s): W19.XXXA - Unspecified fall, initial encounter Plan: Had our community health worker speak with the patient about her alcohol use disorder and options to speak with addiction medicine, detox, etc... (4) Sprain of left shoulder: Code(s): S43.402A - Unspecified sprain of left shoulder joint, initial encounter Qualifiers: Encounter type: initial encounter Shoulder sprain type: rotator cuff capsule Qualified Code(s): S43.422A - Sprain of left rotator cuff capsule, initial encounter Plan: see above Plan See above Orders: Orders XR shoulder LT min 2V Today M25.512 - Pain in left shoulder Referrals Orthopedics Referral M25.512 - Pain in left shoulder Coding Level of Care Code Est Pt Level 4 (97554) Diagnoses Acute pain of left shoulder M25.512 Chronicity: acute Traumatic periorbital ecchymosis of left eye, initial encounter S05.12XA Encounter type: initial encounter Fall, initial encounter W19.XXXA Encounter type: initial encounter Sprain of left rotator cuff capsule, initial encounter S43.422A Encounter type: initial encounter Shoulder sprain type: rotator cuff capsule
[2024-04-25 10:47] VITALS: BP 130/90; PULSE 74; O2SAT 98; BMI 25.3
== END 2024-04-25 11:47 | disposition home or self-care (01) ==
PROVIDERS: PCP Nurse Practitioner Family; Visit Provider Physician Assistant
DX: M25.512 Pain in left shoulder (principal); S05.12XA Contusion of eyeball and orbital tissues, left eye, initial encounter; W19.XXXA Unspecified fall, initial encounter; S43.422A Sprain of left rotator cuff capsule, initial encounter

== ENCOUNTER → 2024-04-25 10:41 | Outpatient (BNVA) | payer OTHER, SELFPAY | PROVIDERS: PCP Nurse Practitioner Family; Visit Provider Physician Assistant ==

== ENCOUNTER 2024-04-25 11:38 | Outpatient (REF) | payer OTHER, SELFPAY ==
--- NOTE | ~2024-04-25 | XR_ITS ---
EXAMINATION: XR SHOULDER, LEFT XR HAND, RIGHT CLINICAL INFORMATION: Pain right hand, left shoulder. COMPARISON: None available. TECHNIQUE: 3 views left shoulder, 3 views right hand. FINDINGS: Left Shoulder: Mild degenerative changes in the acromioclavicular joint. Glenohumeral alignment is preserved. No abnormal soft tissue calcifications appreciated adjacent to the humeral head. Right Hand: Bone mineralization is normal. Ulnar-minus variance. Focal cortical bulge at the distal radius with subtle transverse lucency suspicious for an impacted, nondisplaced distal radial fracture. Mild degenerative changes in the first carpometacarpal joint. Mild degenerative changes at the first metacarpophalangeal joint. XR/XR shoulder LT min 2V IMPRESSION: 1. Focal cortical bulge at the distal radius with subtle transverse lucency suspicious for an impacted, nondisplaced distal radial fracture. Correlation with clinical exam recommended. 2. Mild degenerative changes in the left acromioclavicular joint. This study was presented today April 26, 2024 for interpretation. Stat results provided at this time as requested by referring provider. Electronically signed by: Marjorie Cohen MD 04/26/2024 08:50 AM EDT RP
[2024-04-25 13:11] LABS: MANUAL DIFF FLAG NO
[2024-04-25 13:39] LABS: Basophils Percent Auto 0.5 % (0-2); Eosinophils Absolute Auto 0.2 X10*3/uL (0.0-0.4); Eosinophils Percent Auto 1.8 % (0-4); Hematocrit 46.8 % (37.0-47.0); Hemoglobin 16.5 g/dl (12.0-16.0); Imm Gran Abs Auto 0.03 X10*3/uL (0.00-0.03); Imm Gran Pct Auto 0.4 % (0.0-0.4); Lymphocytes Absolute Auto 1.3 X10*3/uL (1.2-4.9); Lymphocytes Percent Auto 15.8 % (20-40); Mean Corpuscular HGB Conc 35.3 g/dl (31.0-35.0); Mean Corpuscular Hemoglobin 35.2 pg (27.0-33.0); Mean Corpuscular Volume 99.8 fL (80.0-98.0); Mean Platelet Volume 9.7 fL (9.4-12.3); Monocytes Absolute Auto 0.5 X10*3/uL (0.1-1.2); Monocytes Percent Auto 6.3 % (2-11); Neutrophils Absolute Auto 6.3 x10*3/uL (2.0-8.3); Neutrophils Percent Auto 75.2 % (45-73); Platelet Count 255 X10*3/uL (160-400); Red Blood Count 4.69 X10*6/uL (4.20-5.50); Red Cell Distribution Width 11.7 % (11.0-16.0); White Blood Count 8.4 X10*3/uL (4.8-10.8)
[2024-04-25 13:40] LABS: Alanine Aminotransferase 97 U/L (0-31); Albumin Level 4.6 g/dL (3.5-5.0); Alkaline Phosphatase 65 U/L (39-117); Anion Gap 17 (12-20); Aspartate Amino Transferase 125 U/L (5-31); Bilirubin Total 1.1 mg/dL (0.0-1.0); Blood Urea Nitrogen 12 mg/dL (9-16); Calcium 9.7 mg/dL (8.4-10.2); Carbon Dioxide 22 mmol/L (22-29); Chloride 103 mmol/L (96-108); Cholesterol 228 mg/dL (<200); Estimated Glomerular Filt Rate > 60; Glucose Fasting 69 mg/dL (60-99); HDL Cholesterol 81 mg/dL (>40); LDL Cholesterol Calculated 95 mg/dL (<100); Potassium 4.2 mmol/L (3.3-5.1); Sodium 138 mmol/L (135-145); Total Protein 7.3 g/dL (6.5-8.0); Triglycerides 264 mg/dL (<150)
== END 2024-04-25 11:39 | disposition home or self-care (01) ==
LOC: HO.HMGCX 11:38
PROVIDERS: PCP Nurse Practitioner Family; Referring Provider Physician Assistant; Visit Provider Nurse Practitioner Family
DX: M25.512 Pain in left shoulder (principal); S05.12XA Contusion of eyeball and orbital tissues, left eye, initial encounter; S43.422A Sprain of left rotator cuff capsule, initial encounter; W19.XXXA Unspecified fall, initial encounter; I10 Essential (primary) hypertension
CPT/HCPCS: 36415; 73030; 80053; 80061; 84443; 85025; 99212

== ENCOUNTER 2024-05-02 14:24 | Outpatient (AMB) | payer OTHER, SELFPAY ==
--- NOTE | 2024-05-02 15:03 | A.OFFVISCC_ITS ---
Intake Visit Reasons: Intake Allergies No Known Allergies Allergy (Verified 04/25/24 10:50) HPI HPI Intake: Details: Patient presents for intake and evaluation of alcohol use Substance use history obtained by RN She reports many years of heavy drinking, which has recently and is resulting in physical injuries due to falls while intoxicated She reports Wednesday (04/23) she sustained a fall which resulted in her hurting her wrist and having a large wound on her face-she missed work due to this She states she did not drink for 6 days after this incident until Wednesday when she split 1/2 a pint with her girlfriend She denies any withdrawal sx during the days with no alcohol, aside from anxiety Denies tremor, nausea/vomiting, AH or VH, diaphoresis She does note that sleep much improved since she stopped drinking appetite okay --weight loss 3 concussions in one year (from falls sustained while drinking) family history of AUD: on fathers side She denies any history of treatment for AUD BH history reviewed jacqueline, but patient does report trauma history along with history of SIB from age [age] She is help seeking at this time, and open to treatment options Discussed medications, including naltrexone which she is open to Discussed gabapentin to address anxiety reviewed side effects, dosing and goals of treatment PHP notes and labs reviewed PFSH Surgical History H/O knee surgery Family History Father Asthma Mother Hypertension Diabetes Maternal Grandmother Cancer Social History Alcohol intake: current Alcohol intake frequency: a few times a week Patient Tobacco Use Status: Current everyday Tobacco user Tobacco use type: Cigarette Cigarette Packs Per Day: 1 Cigarettes Per Day: 5 Years Smoked: 18 years old e-Cigarette/Vaping Use: Never Used service: No Cognitive needs: No Hearing needs: No Vision needs: No Review of Systems Const Reports as per HPI Physical Exam Const General: cooperative, healthy appearing, anxious and well groomed Nutritional Appearance: average body habitus Orientation/consciousness: patient oriented x3 Limitations: no limitations Neuro General: patient oriented x3 Assessment & Plan Assessment & Plan (1) Alcohol use disorder, severe, dependence: Code(s): F10.20 - Alcohol dependence, uncomplicated Category: Medical Plan: * naltrexone 50mg QD * Gabapentin 100mg BID PRN anxiety * risk reduction discussion * RN reviewed PHP/IOP resources with patient * follow up 2 weeks * encouraged to call office beforehand if necessary Medications: New gabapentin 100 mg PO BID PRN 10 caps 0RF anxiety naltrexone take 1/2 tab daily for 3 days then increase to 1 tab daily 50 mg PO DAILY 30 tabs 0RF
== END 2024-05-02 15:47 | disposition home or self-care (01) ==
LOC: HO.HCC 14:25
PROVIDERS: PCP Nurse Practitioner Family; Visit Provider Nurse Practitioner Psychiatric/Mental Health
DX: F10.20 Alcohol dependence, uncomplicated (principal)
CPT/HCPCS: 99204

== ENCOUNTER → 2024-05-02 14:24 | Outpatient (BNVA) | payer OTHER, SELFPAY | PROVIDERS: PCP Nurse Practitioner Family; Visit Provider Nurse Practitioner Psychiatric/Mental Health | DX: F10.20 Alcohol dependence, uncomplicated (principal); Z81.1 Family history of alcohol abuse and dependence | CPT/HCPCS: 99202 ==

== ENCOUNTER 2024-05-09 09:32 | Outpatient (REF) | payer OTHER, SELFPAY | END 2024-05-09 09:33 | disposition home or self-care (01) | LOC: HO.US 09:32 | PROVIDERS: PCP Nurse Practitioner Family; Visit Provider Nurse Practitioner Family | DX: R74.8 Abnormal levels of other serum enzymes (principal) | CPT/HCPCS: 76700; 76981 ==

== ENCOUNTER 2024-05-16 08:23 | Outpatient (AMB) | payer OTHER, SELFPAY ==
[2024-05-16 08:25] VITALS: BMI 25.3
--- NOTE | 2024-05-16 08:25 | A.OFFVIS_ITS ---
Vital Signs 05/16/24 08:25 Height 5 ft 5 in Weight 152 lb BMI 25.3 Intake Visit Reasons: [employer]- Pain in left shoulder Intake Note: Ashlee is a 38 year old right hand dominant female who presents today as a new patient with complaints of left shoulder pain. Patient reports that she took a fall about 3 weeks ago and landed on the left shoulder. She was seen at [facility] walk in clinic where she was given a work note that put her on light duty & requires her to be cleared before returning to work. She works in the Kitchen at the [employer]. Currently she explains that the shoulder is feeling much better and is having no pain. 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 Patient also reports that she fell on the right wrist about 1 month ago, she was told that she had a distal radius fracture and was hoping to get updated xray at todays visit. She hask occasional pain with certain activities like lifting,pushing and pulling. Allergies No Known Allergies Allergy (Verified 04/25/24 10:50) Medication List - Last Reconciled 05/16/24 by Agus Almeida MD budesonide-formoterol 80-4.5 mcg/actuation (Symbicort) 1 inh inhalation BID 30 days gabapentin 100 mg PO BID PRN hydrochlorothiazide 12.5 mg PO DAILY lisinopril 10 mg PO DAILY montelukast (Singulair) 10 mg PO BEDTIME naltrexone 50 mg PO DAILY Ventolin HFA 90 mcg/actuation (albuterol sulfate) 2 puffs inhalation Q6H PRN 30 days NS PFSH Surgical History H/O knee surgery Family History Father Asthma Mother Hypertension Diabetes Maternal Grandmother Cancer Social History Alcohol intake: current Alcohol intake frequency: a few times a week Patient Tobacco Use Status: Current everyday Tobacco user Tobacco use type: Cigarette Cigarette Packs Per Day: 1 Cigarettes Per Day: 5 Years Smoked: 18 years old e-Cigarette/Vaping Use: Never Used service: No Cognitive needs: No Hearing needs: No Vision needs: No Physical Exam Vital Signs: BMI result Body Mass Index 25.3 Const Other: Well-nourished well-developed very friendly female awake alert and oriented x3 in no acute distress Extrem Other: Bilateral upper extremity examination shows good capillary refill, no skin l esions noted, normal sensation light touch Right wrist examination shows full range motion when compared to her left wrist, no crepitus with range of motion, no tenderness over her scaphoid, minimal d iscomfort with range of motion Left shoulder examination shows almost full range motion when compared to her right shoulder, 4+ out of 5 strength with supraspinatus testing, positive impingement signs, no instability Results Reviewed Results Reviewed: X-rays of the patient's left shoulder show moderate acromioclavicular joint narrowing, a type 2 acromion, no acute bony abnormalities X-rays of the patient's right wrist taken today show no significant degenerative changes, no acute bony abnormalities when compared to previous x-rays taken in March Assessment & Plan Assessment & Plan (1) Right wrist pain: Code(s): M25.531 - Pain in right wrist Category: Medical (2) Impingement syndrome of left shoulder: Code(s): M75.42 - Impingement syndrome of left shoulder Category: Medical Plan Ms. Martin presents with right wrist discomfort most likely due to a wrist sprain as well as left shoulder discomfort due to impingement syndrome. I had a lengthy discussion with the patient regarding the treatment options. At this point the patient's symptoms are improving with continued stretching exercises and activity modifications. We will hold off on a cortisone injection. I have cleared her to return to work. She will follow up on an as-needed basis should her symptoms worsen in any way. Feel free to call me at any time should questions regarding her orthopedic management arise. I spent 20 minutes in reviewing the patient's records and imaging studies, seeing the patient and documenting in the medical record. Orders: Orders XR wrist RT 2V Today M25.531 - Pain in right wrist Coding Level of Care Code Est Pt Level 3 (35970) Complex EM visit Add On G2211 Diagnoses Right wrist pain M25.531 Impingement syndrome of left shoulder M75.42
== END 2024-05-16 08:49 | disposition home or self-care (01) ==
PROVIDERS: PCP Nurse Practitioner Family; Visit Provider Orthopaedic Surgery
DX: M25.531 Pain in right wrist (principal); M75.42 Impingement syndrome of left shoulder
CPT/HCPCS: 99213; G2211

== ENCOUNTER 2024-05-16 08:23 | Outpatient (REF) | payer OTHER, SELFPAY ==
--- NOTE | ~2024-05-16 | XR_ITS ---
EXAMINATION: XR WRIST RIGHT CLINICAL INFORMATION: Pain in right wrist M25.531. COMPARISON: XR Right hand 03/27/2024 TECHNIQUE: PA, lateral views of the right wrist. FINDINGS: Mild degenerative changes of the first MCP joint. Normal radiocarpal alignment. Normal bone mineralization. The soft tissues are unremarkable. XR/XR wrist RT 2V IMPRESSION: Mild degenerative changes of the first MCP joint. Electronically signed by: Herbert Del Toro MD 06/29/2024 10:38 AM [email or web address]
== END 2024-05-16 08:24 | disposition home or self-care (01) ==
LOC: HO.HOSX 08:23
PROVIDERS: PCP Nurse Practitioner Family; Visit Provider Orthopaedic Surgery
DX: M25.531 Pain in right wrist (principal); M75.42 Impingement syndrome of left shoulder
CPT/HCPCS: 73100; 99212

== ENCOUNTER 2024-09-21 14:10 | Outpatient (AMB) | payer OTHER, SELFPAY ==
--- NOTE | 2024-09-21 14:17 | AM.OFFWIN_ITS ---
Intake Vital Signs 3 09/21/24 14:20 Height 5 ft 5 in Weight 151 lb BMI 25.1 BP 124/82 Blood Pressure Location Lt brachial Position Sitting Pulse 94 Pulse Source Pulse Oximeter Pulse Oximetry (%) 96 Oxygen Delivery Method Room Air Intake Visit Reasons: EP Lump on LT/quarter size ~ blood in stool Intake Note: Patient here for lump on left side of ribs and also wanted to discuss blood in stool that has been present for about 1 week. Patient Tobacco Use Status: Current everyday Tobacco user Allergies No Known Allergies Allergy (Verified 04/25/24 10:50) Do you need a note to return to daycare/school/sports/work: No HPI HPI Comments 2 History of Present Illness0 Details 39 y/o female patient who presents to [facility] walk in clinic with c/o Blood in Stools x 1 week. Reports noticing Bright Red Blood in the toilet bowl and on Toilet paper after wiping self. Reports Diarrhea alternating with Constipation sometimes. Admits to not eating Fiber in her Diet, plus not hydrating well daily. Denies any family h/o Colon CA. Pt also c/o Chest wall lump (Left sided), she had a Fall 2 weeks ago and injured her Ribs. She was evaluated at a Local UC and images were negative. She was told probably she has Hematoma from the Fall. Reports Pain with Breathing in/out. [facility] Medical History (Updated 09/21/24 @ 14:40 by Temitope Smalls NP) Rectal bleeding Fatty liver Surgical History H/O knee surgery Family History Father Asthma Mother Hypertension Diabetes Maternal Grandmother Cancer Social History Alcohol intake: current Alcohol intake frequency: a few times a week Patient Tobacco Use Status: Current everyday Tobacco user Tobacco use type: Cigarette Cigarette Packs Per Day: 1 Cigarettes Per Day: 5 Years Smoked: 18 years old e-Cigarette/Vaping Use: Never Used service: No Cognitive needs: No Hearing needs: No Vision needs: No Review of Systems Const All systems reviewed & are unremarkable except as noted in HPI and below Physical Exam Vital Signs: Last Vital Signs Pulse 94 09/21/24 14:20 BP 124/82 09/21/24 14:20 Pulse Ox 96 09/21/24 14:20 Oxygen Delivery Method Room Air 09/21/24 14:20 BMI result Body Mass Index 25.1 Const General: cooperative and no acute distress Nutritional Appearance: well nourished Orientation/consciousness: patient oriented x3 Chest Chest palpation & inspection: no crepitus and tenderness Chest/axillae images: 2 1. Small Lump palpitated, TTP. Resp Effort & Inspection: normal respiratory effort and able to speak in complete sentences Auscultation: clear to auscultation bilaterally, no crackles, no rales, no rhonchi and no wheezes Cardio Heart sounds: S1 normal heart sound present and S2 normal heart sound present Neuro General: patient oriented x3, gait normal and moves all extremities Psych Speech and movement: Normal speech and movement present Assessment & Plan Assessment & Plan (1) Rectal bleeding: Code(s): K62.5 - Hemorrhage of anus and rectum Plan: Ordered Hydrocortisone Rectal Cream Advised to increase Fiber Intake in her Diet Increase Hydration with water F/U with PCP if Bleeding continues, might need Colonoscopy. Plan Lump n chest, Probably Hematoma. Will continue to monitor for now. Medications: New 2 hydrocortisone 2.5% 1 appl AR BID PRN 30 grams 0RF Rectal beeding K62.5 - Hemorrhage of anus and rectum Coding Level of Care Code Est Pt Level 4 (50811) Diagnoses Rectal bleeding K62.5 Time Spent (min) 20
[2024-09-21 14:20] VITALS: BP 124/82; PULSE 94; O2SAT 96; BMI 25.1
== END 2024-09-21 15:06 | disposition home or self-care (01) ==
PROVIDERS: PCP Nurse Practitioner Family; Visit Provider Nurse Practitioner Family
DX: K62.5 Hemorrhage of anus and rectum (principal)

== ENCOUNTER → 2024-09-21 14:10 | Outpatient (BNVA) | payer OTHER, SELFPAY | PROVIDERS: PCP Nurse Practitioner Family; Visit Provider Nurse Practitioner Family | DX: K62.5 Hemorrhage of anus and rectum (principal) | CPT/HCPCS: 99212 ==